=== PATIENT | female | born 1970 | race Caucasian/White ===

== ENCOUNTER 2018-12-06 08:06 | Emergency (ER) | payer MEDICARE, MEDICAID ==
[~2018-12-06] VITALS: Ht 154.9 cm; Wt 81.0 kg
[~2018-12-06 08:06] MED LIST: AMOX1TAB64; ARIP20TA5; ESCI10TA10; FENT1PAT75; FLUT16SP2; GABA400C; HYDR1TAB13; LORA10CA; NORT10CA; SULF1TAB24 PO; TIZA4CAP2
[2018-12-06 08:09] VITALS: BP 111/71
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
--- NOTE | 2018-12-06 08:55 | NUR ---
Patient/Caregiver given discharge instructions and they have confirmed that they understand the instructions. Patient ambulatory with steady gait. PT LEFT WITH ALL PERSONAL BELONGINGS.
== END 2018-12-06 09:19 | disposition home or self-care (01) ==
LOC: ED 08:40
DX: K02.9 Dental caries, unspecified (principal); F32.9 Major depressive disorder, single episode, unspecified
CPT/HCPCS: 99283

== ENCOUNTER 2018-12-07 11:00 | Emergency (ER) | payer MEDICARE, MEDICAID ==
[~2018-12-07] VITALS: Ht 154.9 cm; Wt 81.6 kg
[2018-12-07] MEDS ORDERED: SODIUM CHLORIDE FLUSH 10ML SYR IVF ONE (11:30)
[2018-12-07] MEDS ORDERED: ONDANSETRON 2MG/ML, 2ML IVPush ONE (11:30)
[2018-12-07] MEDS ORDERED: AMPICILLIN/SULBACTAM 3 GM in SODIUM CHLORIDE 0.9% 100 ML IV ONE (11:30)
[2018-12-07] MEDS ORDERED: MORPHINE SULFATE 4 MG/ML, 1ML IV PRN (11:30)
[2018-12-07] MEDS ORDERED: ONDANSETRON 2MG/ML, 2ML ONE ×2 (11:37→11:59)
[2018-12-07] MEDS ORDERED: MORPHINE SULFATE 4 MG/ML, 1ML ONE ×2 (11:37→11:59)
[2018-12-07 11:56] LABS: BASOPHILS # (AUTO) 0.13 x10^3/uL (0-0.1); BASOPHILS % (AUTO) 1 % (0-1); EOSINOPHILS # (AUTO) 0.15 x10^3/uL (0-0.4); EOSINOPHILS % (AUTO) 2 % (1-7); LYMPHOCYTES # (AUTO) 2.01 x10^3/uL (1-3.4); LYMPHOCYTES % (AUTO) 20 % (22-44); MD NO; MEAN CORPUSCULAR HEMOGLOBIN 27.7 pg (27.0-34.8); MEAN CORPUSCULAR HGB CONC 32.9 g/dL (32.4-35.8); MEAN CORPUSCULAR VOLUME 84.3 fL (80-100); MEAN PLATELET VOLUME 8.6 fL (7.4-10.4); MONOCYTES # (AUTO) 1.32 x10^3/uL (0.2-0.8); MONOCYTES % (AUTO) 13 % (2-9); NEUTROPHILS % (AUTO) 64 % (42-75); PLATELET COUNT 417 x10^3/uL (130-400); RED BLOOD COUNT 4.69 x10^6/uL (3.82-5.3); RED CELL DISTRIBUTION WIDTH 17.2 % (9.6-15.2)
[2018-12-07 12:08] LABS: ALBUMIN 3.1 g/dL (3.4-5.0); ANION GAP 6 mmol/L (5-15); CALCIUM 8.5 mg/dL (8.5-10.1); CHLORIDE 110 mmol/L (98-107); CREATININE 0.68 mg/dL (0.55-1.02)
[2018-12-07 12:36] VITALS: BP 119/45
== END 2018-12-07 12:38 | disposition home or self-care (01) ==
LOC: ED 11:56
DX: K04.7 Periapical abscess without sinus (principal)
CPT/HCPCS: 36415; 80048; 82040; 85025; 96365; 96375; 99283; J0295; J2405

== ENCOUNTER 2018-12-28 23:53 | Emergency (ER) | payer MEDICARE, MEDICAID ==
[2018-12-28 23:56] VITALS: BP 126/80
--- NOTE | 2018-12-29 01:30 | NUR ---
pt to room from lobby
[2018-12-29] MEDS ORDERED: AMOXICILLIN/CLAV 875-125MG TABLET ONE (02:14)
[2018-12-29] MEDS ORDERED: HYDROmorphone 2 MG/ML, 1ML ONE (02:15)
[2018-12-29] MEDS ORDERED: HYDROmorphone 1 MG/ML, 1ML INJ IM ONE (02:30)
[2018-12-29] MEDS ORDERED: AMOXICILLIN/CLAV 875-125MG TABLET PO ONE (02:30)
== END 2018-12-29 02:57 | disposition home or self-care (01) ==
LOC: ED 12-29 02:18
DX: K04.7 Periapical abscess without sinus (principal)
CPT/HCPCS: 96372; 99283; J1170